=== PATIENT | male | born 1950 | race Caucasian/White ===

== ENCOUNTER → 2022-09-08 | Outpatient (CLI) | payer OTHER | END | disposition home or self-care (01) | LOC: CARD 11:28 | PROVIDERS: ATTEND Physician Assistant | DX: I35.0 Nonrheumatic aortic (valve) stenosis (principal); I89.0 Lymphedema, not elsewhere classified; L97.901 Non-pressure chronic ulcer of unspecified part of unspecified lower leg limited to breakdown of skin; B35.3 Tinea pedis; L03.90 Cellulitis, unspecified; R60.0 Localized edema; Z79.899 Other long term (current) drug therapy ==

== ENCOUNTER → 2024-01-04 | Outpatient (CLI) | payer OTHER | END | disposition home or self-care (01) | LOC: RAD 11:42 | PROVIDERS: ATTEND Physician Assistant | DX: J92.9 Pleural plaque without asbestos (principal); L03.119 Cellulitis of unspecified part of limb ==

== ENCOUNTER → 2024-02-21 | Outpatient (CLI) | payer OTHER | END | disposition home or self-care (01) | LOC: US 08:16 | PROVIDERS: ATTEND Physician Assistant | DX: Z12.2 Encounter for screening for malignant neoplasm of respiratory organs (principal); R63.4 Abnormal weight loss; F17.200 Nicotine dependence, unspecified, uncomplicated; I25.10 Atherosclerotic heart disease of native coronary artery without angina pectoris; R91.8 Other nonspecific abnormal finding of lung field; J43.9 Emphysema, unspecified; R91.1 Solitary pulmonary nodule ==

== ENCOUNTER → 2024-03-02 | Outpatient (CLI) | payer OTHER | END | disposition home or self-care (01) | LOC: CT 02-29 10:00 | PROVIDERS: ATTEND Physician Assistant | DX: N20.0 Calculus of kidney (principal); R60.0 Localized edema; R63.4 Abnormal weight loss; F17.210 Nicotine dependence, cigarettes, uncomplicated; I25.10 Atherosclerotic heart disease of native coronary artery without angina pectoris; J98.4 Other disorders of lung; N40.0 Benign prostatic hyperplasia without lower urinary tract symptoms; K57.30 Diverticulosis of large intestine without perforation or abscess without bleeding ==